=== PATIENT | male | born 1985 | race Caucasian/White ===

== ENCOUNTER 2021-02-15 14:46 | Emergency (ER) | payer SELFPAY ==
[2021-02-15] VITALS (7 sets, daily range): BP systolic 129–177; BP diastolic 81–97; PULSE 78–112; RESP 16–23; TEMP 36.2–37.1; O2SAT 97–100
--- NOTE | ~2021-02-15 | XR_ITS ---
EXAMINATION: XR chest 2V DATE: 02/15/2021 15:40 INDICATION: Chest tightness. TECHNIQUE: Frontal and lateral views of the chest were obtained. COMPARISON: None. FINDINGS: The chest demonstrates clear lungs without pneumonia, pleural effusion, or pneumothorax. Th e heart size is normal. IMPRESSION: 1. No acute cardiopulmonary disease. Reviewed, dictated and finalized at location A.
--- NOTE | 2021-02-15 14:52 | ECG_ITS ---
Measurements Intervals Ethel Rate: 111 P: 60 TX: 108 QRS: -34 QRSD: 118 T: 40 QT: 321 QTc: 438 Interpretive Statements SINUS TACHYCARDIA WITH SHORT TX INTERVAL LEFT AXIS DEVIATION INCOMPLETE RIGHT BUNDLE BRANCH BLOCK DELAYED PRECORDIAL R/S TRANSITION MINIMAL Q WAVES- INFERIOR LEADS ABNORMAL ECG Electronically Signed On 02-15-2021 17:53:54 CDT by Dipesh Fierro D.O.
--- NOTE | 2021-02-15 15:34 | ED.GENADULT ---
HPI - General Adult General Chief complaint: Chest Pain Stated complaint: SOB, CHEST PAIN Time Seen by Provider: 02/15/21 15:01 Source: patient Mode of arrival: ambulatory Limitations: no limitations History of Present Illness HPI narrative: Patient presents for evaluation of chest pain and sensation that he can catch a deep breath that started an hour and a half ago. He states he had just gotten home from work at the time of symptom onset. He states that he has a history of panic attacks and this feels similar to the symptoms he is experienced with a panic attack in the past. However, today he was unable to calm himself down. States that his chest pain has resolved but sensation that he cannot catch a deep breath has persisted. Described the chest pain is someone sitting on my chest , rated 5 out of 10 in severity. No underlying history of hypertension, hyperlipidemia, diabetes. He does smoke approximately 1 pack/week. Denies any illicit drug use. His father also has history of panic attacks. No additional complaints or concerns. Related Data Allergies Allergy/AdvReac Type Severity Reaction Status Date / Time No Known Allergies Allergy Verified 02/15/21 14:49 Review of Systems Review of Systems: Narrative: CONSTITUTIONAL: Denies fever, chills, or sweats. EYES: Denies visual changes, redness, or discharge. ENT: Denies rhinorrhea, congestion, sore throat, or otalgia. CARDIOVASCULAR: Reports chest pain earlier, now resolved. Palpitations, or edema. RESPIRATORY: Reports sensation that he cannot catch a deep breath. Denies cough. GASTROINTESTINAL: Denies abdominal pain, nausea, vomiting, or diarrhea. GENITOURINARY: Denies dysuria or hematuria. SKIN: Denies rash or itching. MUSCULOSKELETAL: Denies back pain, joint pain, or myalgia. NEUROLOGIC: Denies headache, numbness, dizziness, or weakness. PSYCHIATRIC: Denies anxiety or depression. [facility] Past Medical History Medical History (Updated 02/15/21 @ 20:00 by DILLON Blakely, [facility]) History of cardiac murmur Panic attacks Surgical History Surgical History No pertinent past surgical history Family History Family History Father Panic attack Social History Social History Smoking status: Current every day smoker Additional smoking assessment comments: 1 pack/week Alcohol intake: current Alcohol use details: 4 tall boys every other day Gender identity (if verbalized by the patient): Male Sexual Orientation (if Verbalized by the Patient): Straight or Heterosexual Spiritual care concerns: No Exam Narrative: Exam Narrative: GENERAL: Well-appearing, well-nourished, and in no acute distress. HEAD: Normocephalic, atraumatic. EYES: PERRLA and EOMI. ENT: Nares clear, no rhinorrhea or epistaxis. Mucous membranes moist. Oropharynx without tonsillar hypertrophy exudate or other lesions. Bilateral TMs pearly washburn nonbulging NECK: Supple. No adenopathy or masses. No carotid bruits or JVD CHEST: Clear to auscultation. No respiratory distress. No wheezes rales or rhonchi HEART: Regular rate and rhythm. No murmur heard. Normal peripheral pulses. ABDOMEN: Soft, nontender, nondistended, normal active bowel sounds. EXTREMITIES: Normal range of motion. No edema. SKIN: Warm, dry, no rash. NEURO: No focal deficits. Alert and oriented x3. PSYCH: Normal mood and affect. Course Course Emergency Course: 35-year-old male who presented with complaints of inability to catch a deep breath and chest heaviness. Trop negative x2. EKG with no acute ischemic changes. D-dimer was added as PE could not be definitively ruled out with PERC criteria. D-dimer was negative. Patient was given Vistaril for suspected panic attack and had improvement in his symptoms or after. Advise close follow-up and
[2021-02-15] MEDS: ASPIRIN 81 MG CHEWABLE TABLET 324 MG PO (15:58)
[2021-02-15] MEDS: hydrOXYzine pamoate 25 MG CAPSULE 50 MG PO (15:58)
[2021-02-15 15:59] LABS: Basophils Absolute Auto 0.1 K/mm3 (0.0-0.1); Basophils Percent Auto 0.5 % (0.2-1.2); Eosinophils Absolute Auto 0.1 K/mm3 (0-0.3); Eosinophils Percent Auto 0.5 % (0-4.4); Hematocrit 45.7 % (42.0-52.0); Hemoglobin 15.6 g/dL (14.0-18.0); Immature Granulocyte Absolute 0.04 K/mm3 (0.00-0.031); Immature Granulocyte Percent A 0.4 % (0-0.5); Lymphocytes Absolute Auto 1.05 K/mm3 (0.9-3.2); Lymphocytes Percent Auto 10.3 % (18.3-44.2); Mean Corpuscular HGB Conc 34.1 g/dl (32-36); Mean Corpuscular Hemoglobin 30.6 pg (26-34); Mean Corpuscular Volume 89.8 fl (80-100); Mean Platelet Volume 11.3 fl (7.4-10.4); Monocytes Absolute Auto 0.7 K/mm3 (0.1-0.6); Monocytes Percent Auto 6.9 % (2.6-8.5); Neutrophils Absolute Auto 8.3 K/mm3 (1.3-6.7); Neutrophils Percent Auto 81.4 % (45.5-73.1); Platelet Count Result 265 k/mm3 (150-375); Red Blood Count 5.09 M/mm3 (4.6-6.20); White Blood Count 10.2 K/mm3 (4.5-10.0)
[2021-02-15 16:08] LABS: INR 0.9; Prothrombin Time 12.8 Seconds (11.1-14.7)
[2021-02-15 16:09] LABS: Partial Thromboplastin Time 24.9 SECONDS (22.3-36.8)
[2021-02-15 16:20] LABS: Troponin I < 0.012 ng/mL (0.000-0.034)
[2021-02-15 17:46] LABS: Alanine Aminotransferase 85 U/L (4-50); Albumin Level 4.6 g/dL (3.5-5.1); Alkaline Phosphatase 113 U/L (38-126); Anion Gap 8 mmol/L (8-16); Aspartate Amino Transferase 84 U/L (17-59); Bilirubin,Total 0.5 mg/dL (0.2-1.3); Blood Urea Nitrogen 13 mg/dL (9-20); Calcium 9.4 mg/dL (8.4-10.2); Carbon Dioxide 29 mmol/L (22-30); Chloride 105 mmol/L (98-107); Estimated CRCL calculation 91 ml/min; Estimated Glomerular Filt Rate > 60; Glucose 98 mg/dL (75-110); Sodium 142 mmol/L (137-145)
[2021-02-15 18:30] LABS: D Dimer 0.27 ug/mL (<0.48)
[2021-02-15 19:15] LABS: Troponin I < 0.012 ng/mL (0.000-0.034)
== END 2021-02-15 20:20 | disposition home or self-care (01) ==
PROVIDERS: Emergency Provider Nurse Practitioner
DX: F41.0 Panic disorder [episodic paroxysmal anxiety] (principal); R07.89 Other chest pain; F17.210 Nicotine dependence, cigarettes, uncomplicated; R00.0 Tachycardia, unspecified; I45.10 Unspecified right bundle-branch block; R94.31 Abnormal electrocardiogram [ECG] [EKG]
CPT/HCPCS: 36415; 71046; 80053; 84484; 85025; 85380; 85610; 85730; 93005; 99284; A9270